=== PATIENT | female | born 1970 | race American Indian/Alaskan Native ===

== ENCOUNTER 2016-06-11 23:08 | Emergency (ER) | payer MEDICAID, OTHER ==
[2016-06-11 23:16] VITALS: BP 111/77
[2016-06-11] MEDS ORDERED: Albuterol/Ipratropium 3.0-0.5 MG/3 ML Neb Soln NEB ONE (23:52)
--- NOTE | 2016-06-11 23:59 | EDM.PDOC ---
ED HISTORY OF PRESENT ILLNESS - General Chief Complaint: Headache Stated Complaint: TROUBLE BREATHING Time Seen by Provider: 06/11/16 23:45 Source of Information: Reports: Patient History Limitations: Reports: No limitations - History of Present Illness INITIAL COMMENTS - FREE TEXT/NARRATIVE: This 45 yo female patient reports to the ED with increased shortness of breath, coughing and head congestion for the past month. The patient reports she was seen at the [facility] last week, started on Azithromycin, given an inhaler and a nebulizer. The patient reports she took all of the Azithromycin, has been using the inhaler and used the nebulizer 2 times since she was seen in the clinic. The patient reports her shortness of breath got much worse today which prompted her to come into the ED. Timing/Duration: Reports: Week(s):, Constant, Getting worse Severity: moderate Location, General: Reports: head, chest Quality: Reports: Ache, Dull Improves with: Reports: None Worsens with: Reports: Breathing Associated Symptoms (General): Reports: cough, headaches, shortness of breath Treatments PULP DRIER: Reports: Breathing treatments, Other medication(s) - Related Data Allergies/ADRs: Allergies Allergy/AdvReac Type Severity Reaction Status Date / Time No Known Allergies Allergy Verified 06/11/16 23:17 Home Meds: Home Meds Ibuprofen [Motrin] 1,200 mg PO Q6HR PRN 01/29/14 [History] Acetaminophen [Q-Pap] 650 mg PO 06/11/16 [History] Albuterol [Proventil HFA] 6.7 gm INH BID 06/11/16 [History] Cyclobenzaprine [Flexeril] 10 mg PO BEDTIME 06/11/16 [History] Past Medical History HEENT 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: Sinusitis Gastrointestinal 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: Other (see below) Other Gastrointestinal History: ulcer - Past Surgical History Female Surgical 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: section, Tubal ligation Other Musculoskeletal Surgeries/Procedures:: ankle Social & Family History - Family History Family Medical History: Noncontributory Cardiac: Reports: Hypertension Oncologic: Reports: Uterine - Tobacco Use Smoking Status *Q: Former Smoker Years of Tobacco use: 13 Packs/Tins Daily: 0.5 Used Tobacco, but Quit: Yes Month Tobacco Last Used: january; 2 years ago Second Hand Smoke Exposure: No - Caffeine Use Caffeine Use: Reports: Coffee - Alcohol Use Days Per Week of Alcohol Use: 0 - Recreational Drug Use Recreational Drug Use: No - Living Situation & Occupation Living situation: Reports: , with family ED ROS GENERAL - Review of Systems Review Of Systems: ROS reveals no pertinent complaints other than HPI. ED EXAM, GENERAL - Physical Exam Exam: See Below Exam Limited By: No limitations General Appearance: alert, WD/WN, moderate distress Eye Exam: bilateral eye: EOMI, normal inspection, PERRL Ears: normal external exam, normal canal, hearing grossly normal, normal TMs Nose: normal inspection, normal mucosa, no blood Throat/Mouth: Normal inspection, Normal lips, Normal teeth, Normal gums, Normal oropharynx, Normal voice, No airway compromise Head: atraumatic, normocephalic Neck: normal inspection, supple, non-tender, full range of motion Respiratory/Chest: no respiratory distress, chest non-tender, rhonchi (faint ) Cardiovascular: normal peripheral pulses, regular rate, rhythm, no edema, no gallop, no JVD, no murmur, no rub GI/Abdominal: normal bowel sounds, soft, non tender, no organomegaly, no distention, no abnormal bruit, no mass (Female) Exam: Deferred Rectal (Female) Exam: Deferred Back Exam: normal inspection, full range of motion, NT Extremities: normal inspection, normal range of motion, non-tender, normal capillary refill, no pedal edema Neurological: alert, oriented, CN II-XII intact, normal cognition, normal gait, normal reflexes, no motor/sensory deficits Psychiatric: normal affect, normal mood Skin Exam: Warm, Dry, Intact, Normal color, No rash Lymphatic: no adenopathy Course - Vital Signs Last Recorded V/S: Last Vital Signs Temp 36.8 C 06/11/16 23:12 Pulse 56 L 06/12/16 00:06 Resp 18 06/11/16 23:12 BP 111/77 06/11/16 23:12 Pulse Ox 100 06/11/16 23:12 - Orders/Labs/Meds Orders: Active Orders 24 hr Category Date Time Status RT Aerosol Therapy [RC] ASDIRECTED Care 06/11/16 23:52 Active COMPREHENSIVE METABOLIC PN,CMP [CHEM] Urgent Lab 06/11/16 00:05 Received Labs: Laboratory Tests 06/11/16 Range/Units 00:05 WBC 8.6 (5.0-10.0) 10^3/uL RBC 4.52 (4.2-5.4) 10^6/uL Hgb 13.2 (12.0-16.0) g/dL Hct 39.2 (37.0-47.0) % MCV 86.7 (80-100) fL MCH 29.2 (27.0-34.0) pg MCHC 33.7 (33.0-35.0) g/dL Plt Count 282 (150-450) 10^3/uL Neut % (Auto) 60.3 (42.2-75.2) % Lymph % (Auto) 28.5 (20.5-50.1) % [place] % (Auto) 9.5 H (2-8) % Eos % (Auto) 1.4 (1.0-3.0) % Baso % (Auto) 0.3 (0.0-1.0) % Meds: Medications Discontinued Medications Generic Name Dose Route Start Last Admin Trade Name Freq PRN Reason Stop Dose Admin Albuterol/Ipratropium 3 ml 06/11/16 23:52 06/12/16 00:05 Duoneb 3.0-0.5 Mg/3 Ml NEB 06/11/16 23:53 3 ml ONETIME ONE Administration Prednisone 20 mg 06/12/16 00:19 Prednisone PO 06/12/16 00:20 ONETIME ONE Departure - Departure Time of Disposition: 00:27 Disposition: Home, Self-Care 01 Condition: fair Clinical Impression: URI (upper respiratory infection) Qualifiers: URI type: unspecified URI Qualified Code(s): J06.9 - Acute upper respiratory infection, unspecified Instructions: Upper Respiratory Infection, Adult, [id number] Forms: ED Department Discharge Care Plan Goals: The patient was advised of the examination, lab and x-ray result during the visit. The patient was given an oral dose of Prednisone while in the ED. The patient was discharged with a script for a Medrol Dose Pack to take as directed. If the patient has any additional symptoms or concerns, the patient should follow-up with her primary care facility or return to the emergency department. - My Orders Last 24 Hours: My Active Orders 06/11/16 00:05 COMPREHENSIVE METABOLIC PN,CMP [CHEM] Urgent 06/11/16 23:52 RT Aerosol Therapy [RC] ASDIRECTED - Assessment/Plan Last 24 Hours: My Active Orders 06/11/16 00:05 COMPREHENSIVE METABOLIC PN,CMP [CHEM] Urgent 06/11/16 23:52 RT Aerosol Therapy [RC] ASDIRECTED
[2016-06-12] MEDS ORDERED: predniSONE 20 MG Tab PO ONE (00:19)
[2016-06-12 00:31] LABS: CHLORIDE,CL 105 mmol/L (101-111); SODIUM,NA 138 mmol/L (135-145)
== END 2016-06-12 00:35 | disposition home or self-care (01) ==
LOC: DL.ED 23:08
DX: J06.9 Acute upper respiratory infection, unspecified (principal); Z98.51 Tubal ligation status; Z79.899 Other long term (current) drug therapy; Z87.891 Personal history of nicotine dependence
CPT/HCPCS: 36415; 71020; 80053; 85025; 94640; 99284; A9270

== ENCOUNTER 2016-06-19 18:47 | Emergency (ER) | payer OTHER ==
[2016-06-19 19:51] LABS: CHLORIDE,CL 109 mmol/L (101-111); SODIUM,NA 138 mmol/L (135-145)
[2016-06-19 20:05] VITALS: BP 107/49
--- NOTE | 2016-06-19 20:09 | EDM.PDOC ---
ED HISTORY OF PRESENT ILLNESS - General Chief Complaint: Respiratory Problem Stated Complaint: HARD TIME BREATHING Time Seen by Provider: 06/19/16 19:00 Source of Information: Reports: Patient History Limitations: Reports: No limitations - History of Present Illness INITIAL COMMENTS - FREE TEXT/NARRATIVE: c/o chest feeling tight, Was seen approximately 2 weeks ago, was on antibiotic and prednisone, given inhaler for similar sx, Concerned if from mold in bathroom. No fevers, occasional dry cough. Timing/Duration: Reports: Day(s): Severity: moderate Location, General: Reports: chest Improves with: Reports: Other (when absent from house) Worsens with: Reports: Rest Context, General: Reports: Activity Associated Symptoms (General): Reports: cough, other (chest tight burning) - Related Data Allergies/ADRs: Allergies Allergy/AdvReac Type Severity Reaction Status Date / Time No Known Allergies Allergy Verified 06/19/16 18:55 Home Meds: Home Meds Ibuprofen [Motrin] 1,200 mg PO Q6HR PRN 01/29/14 [History] Acetaminophen [Q-Pap] 650 mg PO 06/11/16 [History] Albuterol [Proventil HFA] 6.7 gm INH BID 06/11/16 [History] Cyclobenzaprine [Flexeril] 10 mg PO BEDTIME 06/11/16 [History] Past Medical History HEENT 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: Sinusitis Gastrointestinal 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: Other (see below) Other Gastrointestinal History: ulcer - Infectious Disease History Infectious Disease 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: None - Past Surgical History Female Surgical 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: section, Tubal ligation Other Musculoskeletal Surgeries/Procedures:: ankle Social & Family History - Family History Family Medical History: Noncontributory Cardiac: Reports: Hypertension Oncologic: Reports: Uterine - Tobacco Use Smoking Status *Q: Former Smoker Years of Tobacco use: 13 Packs/Tins Daily: 0.5 Used Tobacco, but Quit: Yes Month Tobacco Last Used: january; 2 years ago Second Hand Smoke Exposure: No - Caffeine Use Caffeine Use: Reports: Coffee - Alcohol Use Days Per Week of Alcohol Use: 0 - Recreational Drug Use Recreational Drug Use: No - Living Situation & Occupation Living situation: Reports: , with family ED ROS GENERAL - Review of Systems Review Of Systems: See Below Constitutional: Reports: no symptoms HEENT: Reports: Throat pain Respiratory: Reports: Shortness of Breath, Cough Cardiovascular: Reports: Chest pain Endocrine: Reports: no symptoms GI/Abdominal: Reports: No symptoms Musculoskeletal: Reports: no symptoms Skin: Reports: no symptoms Neurological: Reports: No Symptoms ED EXAM, GENERAL - Physical Exam Exam: See Below Exam Limited By: No limitations General Appearance: alert, anxious, mild distress Eye Exam: bilateral eye: EOMI, PERRL Ears: normal external exam Nose: normal inspection Throat/Mouth: Normal inspection, Normal oropharynx, Normal voice Head: atraumatic, normocephalic Neck: normal inspection, full range of motion Respiratory/Chest: no respiratory distress, lungs clear, normal breath sounds. No: respiratory distress, rales, rhonchi, wheezing Cardiovascular: normal peripheral pulses, regular rate, rhythm GI/Abdominal: normal bowel sounds Back Exam: normal inspection Extremities: normal inspection Neurological: alert, oriented, normal cognition Psychiatric: anxious Skin Exam: Warm, Dry, Intact, Normal color Course - Vital Signs Last Recorded V/S: Last Vital Signs Temp 98.4 F 06/19/16 18:50 Pulse 56 L 06/19/16 18:50 Resp 20 06/19/16 18:50 BP 107/49 L 06/19/16 18:50 Pulse Ox 100 06/19/16 18:50 - Orders/Labs/Meds Orders: Active Orders 24 hr Category Date Time Status EKG 12 Lead [EKG Documentation Completion] [RC] URGENT Care 06/19/16 19:20 Active RT Aerosol Therapy [RC] ASDIRECTED Care 06/19/16 20:19 Active CULTURE STREP A CONFIRMATION [] Stat Lab 06/19/16 19:05 Results STREP SCRN A RAPID W CULT CONF [] Stat Lab 06/19/16 19:05 Results Labs: Laboratory Tests 06/19/16 06/19/16 06/19/16 Range/Units 19:17 19:17 19:17 WBC 10.3 H (5.0-10.0) 10^3/uL RBC 4.60 (4.2-5.4) 10^6/uL Hgb 13.4 (12.0-16.0) g/dL Hct 39.6 (37.0-47.0) % MCV 86.1 (80-100) fL MCH 29.1 (27.0-34.0) pg MCHC 33.8 (33.0-35.0) g/dL Plt Count 322 (150-450) 10^3/uL Neut % (Auto) 61.6 (42.2-75.2) % Lymph % (Auto) 28.4 (20.5-50.1) % [place] % (Auto) 8.8 H (2-8) % Eos % (Auto) 1.1 (1.0-3.0) % Baso % (Auto) 0.1 (0.0-1.0) % D-Dimer, Quantitative < 100 (0-400) ng/mL Sodium 138 (135-145) mmol/L Potassium 3.6 (3.6-5.0) mmol/L Chloride 109 (101-111) mmol/L Carbon Dioxide 21.0 (21.0-31.0) mmol/L Anion Gap 11.6 BUN 10 (7-18) mg/dL Creatinine 0.7 (0.6-1.3) mg/dL Est Cr Clr Drug Dosing TNP Estimated GFR (MDRD) > 60 BUN/Creatinine Ratio 14.28 Glucose 91 (74-105) mg/dL Calcium 8.5 (8.4-10.2) mg/dl Total Bilirubin 0.4 (0.2-1.0) mg/dL AST 34 (10-42) IU/L ALT 36 (10-60) IU/L Alkaline Phosphatase 53 (42-121) IU/L Troponin I (0.00-0.02) ng/ml Total Protein 6.8 (6.7-8.2) g/dl Albumin 4.0 (3.2-5.5) g/dl Globulin 2.8 Albumin/Globulin Ratio 1.43 Amylase 31 (28-100) U/L Lipase 34 (22-51) U/L Urine Color (YELLOW) Urine Appearance (CLEAR) Urine pH (5.0-9.0) Ur Specific [place] (1.005-1.030) Urine Protein (NEGATIVE) Urine Glucose (UA) (NEGATIVE) Urine Ketones (NEGATIVE) Urine Occult Blood (NEGATIVE) Urine Nitrite (NEGATIVE) Urine Bilirubin (NEGATIVE) Urine Urobilinogen (0.2-1.0) mg/dL Ur Leukocyte Esterase (NEGATIVE) Urine RBC /HPF Urine WBC (0-5/HPF) /HPF Ur Epithelial Cells /HPF Urine Bacteria (0-FEW/HPF) /HPF Urine HCG, Qual 06/19/16 06/19/16 06/19/16 Range/Units 19:17 19:35 19:35 WBC (5.0-10.0) 10^3/uL RBC (4.2-5.4) 10^6/uL Hgb (12.0-16.0) g/dL Hct (37.0-47.0) % MCV (80-100) fL MCH (27.0-34.0) pg MCHC (33.0-35.0) g/dL Plt Count (150-450) 10^3/uL Neut % (Auto) (42.2-75.2) % Lymph % (Auto) (20.5-50.1) % [place] % (Auto) (2-8) % Eos % (Auto) (1.0-3.0) % Baso % (Auto) (0.0-1.0) % D-Dimer, Quantitative (0-400) ng/mL Sodium (135-145) mmol/L Potassium (3.6-5.0) mmol/L Chloride (101-111) mmol/L Carbon Dioxide (21.0-31.0) mmol/L Anion Gap BUN (7-18) mg/dL Creatinine (0.6-1.3) mg/dL Est Cr Clr Drug Dosing Estimated GFR (MDRD) BUN/Creatinine Ratio Glucose (74-105) mg/dL Calcium (8.4-10.2) mg/dl Total Bilirubin (0.2-1.0) mg/dL AST (10-42) IU/L ALT (10-60) IU/L Alkaline Phosphatase (42-121) IU/L Troponin I < 0.02 (0.00-0.02) ng/ml Total Protein (6.7-8.2) g/dl Albumin (3.2-5.5) g/dl Globulin Albumin/Globulin Ratio Amylase (28-100) U/L Lipase (22-51) U/L Urine Color Yellow (YELLOW) Urine Appearance Clear (CLEAR) Urine pH 7.0 (5.0-9.0) Ur Specific [place] 1.010 (1.005-1.030) Urine Protein Negative (NEGATIVE) Urine Glucose (UA) Negative (NEGATIVE) Urine Ketones Negative (NEGATIVE) Urine Occult Blood Negative (NEGATIVE) Urine Nitrite Negative (NEGATIVE) Urine Bilirubin Negative (NEGATIVE) Urine Urobilinogen 0.2 (0.2-1.0) mg/dL Ur Leukocyte Esterase Negative (NEGATIVE) Urine RBC 0-5 /HPF Urine WBC Not seen (0-5/HPF) /HPF Ur Epithelial Cells Few /HPF Urine Bacteria Rare (0-FEW/HPF) /HPF Urine HCG, Qual Negative Meds: Medications Discontinued Medications Generic Name Dose Route Start Last Admin Trade Name Freq PRN Reason Stop Dose Admin Albuterol 2.5 mg 06/19/16 20:18 06/19/16 20:23 Proventil Neb Soln NEB 06/19/16 20:19 2.5 mg ONETIME ONE Administration Prednisone 20 mg 06/19/16 20:44 06/19/16 20:48 Prednisone PO 06/19/16 20:45 20 mg ONETIME ONE Administration - Radiology Interpretation Free Text/Narrative:: CXR negative Departure - Departure Time of Disposition: 20:45 Disposition: Home, Self-Care 01 Condition: good Clinical Impression: Reactive airway disease Qualifiers: Asthma severity: mild persistent Asthma complication type: uncomplicated Qualified Code(s): J45.30 - Mild persistent asthma, uncomplicated Instructions: Asthma, Adult Referrals: PCP,None [Primary Care Provider] - Forms: ED Department Discharge Additional Instructions: medrol dose pack per package instructions albuterol inhaler 2 puffs every 4 hours as needed clinic follow up as needed if symptoms not improving - My Orders Last 24 Hours: My Active Orders 06/19/16 19:05 CULTURE STREP A CONFIRMATION [RM] Stat STREP SCRN A RAPID W CULT CONF [RM] Stat 06/19/16 19:20 EKG 12 Lead [EKG Documentation Completion] [RC] URGENT 06/19/16 20:19 RT Aerosol Therapy [RC] ASDIRECTED - Assessment/Plan Last 24 Hours: My Active Orders 06/19/16 19:05 CULTURE STREP A CONFIRMATION [RM] Stat STREP SCRN A RAPID W CULT CONF [RM] Stat 06/19/16 19:20 EKG 12 Lead [EKG Documentation Completion] [RC] URGENT 06/19/16 20:19 RT Aerosol Therapy [RC] ASDIRECTED
[2016-06-19] MEDS ORDERED: Albuterol 0.083% 2.5 MG/3 ML Neb Soln NEB ONE (20:18)
[2016-06-19] MEDS ORDERED: predniSONE 20 MG Tab PO ONE (20:44)
--- NOTE | 2016-06-20 13:23 | EKG ---
06/19/2016- CHARLES LEBLANC - EKG done on a 45-year-old female showing sinus rhythm with heart rate of 56 beats per minute, normal axis, normal intervals, no acute ST-T wave changes. [facility] /[id number]
== END 2016-06-19 20:50 | disposition home or self-care (01) ==
LOC: DL.ED 18:47
DX: J45.30 Mild persistent asthma, uncomplicated (principal); Z98.51 Tubal ligation status; Z87.891 Personal history of nicotine dependence; Z79.899 Other long term (current) drug therapy
CPT/HCPCS: 36415; 71020; 80053; 81001; 81025; 82150; 83690; 84484; 85025; 85379; 87081; 87430; 87804; 93005; 94640; 99285; A9270; J7620

== ENCOUNTER 2017-05-27 16:47 | Emergency (ER) | payer OTHER ==
[2017-05-27 17:00] VITALS: BP 112/68
--- NOTE | 2017-05-27 17:33 | CR ---
Clinical history: 46-year-old female pain left wrist starting 2 days ago. No known trauma. Interpretation: Homogeneous normal age appropriate bone density. Isolated tiny cyst distal end of the carpal scaphoid bone. Subtle reactive sclerosis radiocarpal and carpal metacarpal joints radial aspect of the wrist suggest s early arthritis. No sign of left wrist fracture or dislocation. (Tendinous injury?) Normal metacarpals. No foreign bodies.
--- NOTE | 2017-05-27 18:08 | EDM.PDOC ---
ED HPI GENERAL MEDICAL PROBLEM - General Chief Complaint: Upper Extremity Injury/Pain Stated Complaint: [id number] HURT WRIST-ADVISED TO HAVE XRAYED Time Seen by Provider: 05/27/17 17:55 Source of Information: Reports: Patient History Limitations: Reports: No Limitations - History of Present Illness INITIAL COMMENTS - FREE TEXT/NARRATIVE: This 46 yo female patient reports to the ED with a 3 day history of pain in her left wrist. The patient reports she woke up on Saturday morning with pain in her wrist. The patient does not recall any specific injury or trauma to the area. The patient has been applying ice which has reduced the pain. The patient attempted to get an appointment in the clinic, but there were no openings. Onset Date: 05/25/17 Duration: Constant Location: Reports: Upper Extremity, Left Quality: Reports: Ache, Dull Severity: Moderate Improves with: Reports: Rest, Other (ice) Worsens with: Reports: Movement Associated Symptoms: Reports: No Other Symptoms Left Arm Pain Score (Numeric/FACES): 7 - Related Data Allergies Allergy/AdvReac Type Severity Reaction Status Date / Time No Known Allergies Allergy Verified 06/19/16 18:55 Home Meds: Home Meds Ibuprofen [Motrin] 1,200 mg PO Q6HR PRN 01/29/14 [History] Acetaminophen [Q-Pap] 650 mg PO 06/11/16 [History] Albuterol [Proventil HFA] 6.7 gm INH BID 06/11/16 [History] Cyclobenzaprine [Flexeril] 10 mg PO BEDTIME 06/11/16 [History] Past Medical History HEENT 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: Sinusitis Gastrointestinal 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: Other (See Below) Other Gastrointestinal History: ulcer - Infectious Disease History Infectious Disease 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: None - Past Surgical History Female Surgical 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: Section, Tubal Ligation Musculoskeletal Surgical 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: Other (See Below) Other Musculoskeletal Surgeries/Procedures:: ankle Social & Family History - Family History Family Medical History: Noncontributory Cardiac: Reports: Hypertension Oncologic: Reports: Uterine - Tobacco Use Smoking Status *Q: Never Smoker Years of Tobacco use: 13 Packs/Tins Daily: 0.5 Used Tobacco, but Quit: Yes Month/Year Tobacco Last Used: january; 2 years ago Second Hand Smoke Exposure: No - Caffeine Use Caffeine Use: Reports: Coffee, Soda, Tea - Alcohol Use Days Per Week of Alcohol Use: 0 - Recreational Drug Use Recreational Drug Use: No - Living Situation & Occupation Living situation: Reports: , with Family Review of Systems - Review of Systems Review Of Systems: ROS reveals no pertinent complaints other than HPI. ED EXAM, GENERAL - Physical Exam Exam: See Below Exam Limited By: No Limitations General Appearance: Alert, WD/WN, Mild Distress Eye Exam: Bilateral Eye: EOMI, Normal Inspection, PERRL Ears: Normal External Exam, Normal Canal, Hearing Grossly Normal, Normal TMs Nose: Normal Inspection, Normal Mucosa, No Blood Throat/Mouth: Normal Inspection, Normal Lips, Normal Teeth, Normal Gums, Normal Oropharynx, Normal Voice, No Airway Compromise Head: Atraumatic, Normocephalic Neck: Normal Inspection, Full Range of Motion Respiratory/Chest: No Respiratory Distress, Lungs Clear, Normal Breath Sounds, No Accessory Muscle Use, Chest Non-Tender Cardiovascular: Normal Peripheral Pulses, Regular Rate, Rhythm (Female) Exam: Deferred Rectal (Female) Exam: Deferred Extremities: Arm Pain (left wrist pain) Neurological: Alert, Oriented, CN II-XII Intact, Normal Cognition, Normal Gait, Normal Reflexes, No Motor/Sensory Deficits Psychiatric: Normal Affect, Normal Mood Skin Exam: Warm, Dry, Intact, Normal Color, No Rash Lymphatic: No Adenopathy Course - Vital Signs Last Recorded V/S: Last Vital Signs Temp 37.0 C 05/27/17 16:59 Pulse 55 L 05/27/17 16:59 Resp 16 05/27/17 16:59 BP 112/68 05/27/17 16:59 Pulse Ox 99 05/27/17 16:59 Departure - Departure Time of Disposition: 18:07 Disposition: Home, Self-Care 01 Condition: Fair Clinical Impression: Left wrist sprain Qualifiers: Encounter type: initial encounter Qualified Code(s): S63.502A - Unspecified sprain of left wrist, initial encounter - Discharge Information Instructions: Wrist Sprain, Adult Care Plan Goals: The patient was advised of the examination and lab results during the visit. The patient was placed in a left wrist splint and advised to rest, ice and elevate the extremity over the next 2-3 days. If the patient continues to have pain, the patient should follow-up with her primary care facility for continued evaluation and management.
== END 2017-05-27 18:22 | disposition home or self-care (01) ==
LOC: DL.ED 16:47
DX: S63.502A Unspecified sprain of left wrist, initial encounter (principal); Z87.891 Personal history of nicotine dependence; X58.XXXA Exposure to other specified factors, initial encounter
CPT/HCPCS: 73110-LT; 99283

== ENCOUNTER 2018-04-16 03:21 | Emergency (ER) | payer OTHER ==
[2018-04-16 03:30] VITALS: BP 135/77
[2018-04-16] MEDS ORDERED: Sodium Chloride 0.9% 10 ML Syringe FLUSH PRN (03:36)
[2018-04-16 04:03] LABS: ANION GAP 11.6; CHLORIDE,CL 108 mmol/L (101-111); SODIUM,NA 137 mmol/L (135-145)
--- NOTE | 2018-04-16 04:19 | EDM.PDOC ---
ED HPI GENERAL MEDICAL PROBLEM - General Chief Complaint: Chest Pain Stated Complaint: CHEST PAIN [id number] Time Seen by Provider: 04/16/18 03:25 Source of Information: Reports: Patient History Limitations: Reports: No Limitations - History of Present Illness INITIAL COMMENTS - FREE TEXT/NARRATIVE: Pt to ER with c/o left sided chest pain. She states the pain began last night and woke her up. She states she is not having any pain at this time. She states she had the same pain the night before last. Pt states she took 2 aspirin. She states she wears a Fitbit and her heart rate had been in the 60's, which is high for her as her HR is normally only in the 40's to 50's. Patient denies any recent illness. No accompanying nausea, vomiting, diaphoresis, SOB. Patient did admit that the pain radiated to the left arm at times. Patient admits to some anxiety at times. Onset: Today Duration: Intermittent Location: Reports: Chest Quality: Reports: Stabbing Severity: Moderate Improves with: Reports: None Worsens with: Reports: None Associated Symptoms: Reports: Chest Pain Left Chest Pain Score (Numeric/FACES): 7 - Related Data Allergies Allergy/AdvReac Type Severity Reaction Status Date / Time No Known Allergies Allergy Verified 04/16/18 03:26 Home Meds: Home Meds Ibuprofen [Motrin] 1,200 mg PO Q6HR PRN 01/29/14 [History] Acetaminophen [Q-Pap] 650 mg PO 06/11/16 [History] Albuterol [Proventil HFA] 6.7 gm INH BID 06/11/16 [History] Cyclobenzaprine [Flexeril] 10 mg PO BEDTIME 06/11/16 [History] Past Medical History HEENT 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: Impaired Vision, Sinusitis Other HEENT History: wears glasses Cardiovascular 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: None Respiratory 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: None Gastrointestinal 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: Other (See Below) Other Gastrointestinal History: ulcer Genitourinary 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: None 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: None Musculoskeletal 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: None Neurological 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: None Psychiatric 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: None Endocrine/Metabolic 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: None Hematologic 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: None Immunologic 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: None Oncologic (Cancer) 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: None Dermatologic 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: None - Infectious Disease History Infectious Disease 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: None - Past Surgical History Female Surgical 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: Section, Tubal Ligation Musculoskeletal Surgical 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: Other (See Below) Other Musculoskeletal Surgeries/Procedures:: ankle Social & Family History - Family History Family Medical History: Noncontributory Cardiac: Reports: Hypertension Oncologic: Reports: Uterine - Tobacco Use Smoking Status *Q: Never Smoker - Caffeine Use Caffeine Use: Reports: Coffee, Soda, Tea - Recreational Drug Use Recreational Drug Use: No - Living Situation & Occupation Living situation: Reports: , with Family ED ROS GENERAL - Review of Systems Review Of Systems: ROS reveals no pertinent complaints other than HPI. ED EXAM, GENERAL - Physical Exam Exam: See Below Exam Limited By: No Limitations General Appearance: Alert, WD/WN, No Apparent Distress Eye Exam: Bilateral Eye: EOMI, Normal Inspection Ears: Normal External Exam, Hearing Grossly Normal Nose: Normal Inspection Throat/Mouth: Normal Inspection, Normal Voice, No Airway Compromise Head: Atraumatic, Normocephalic Neck: Normal Inspection, Supple, Non-Tender, Full Range of Motion Respiratory/Chest: No Respiratory Distress, Lungs Clear, Normal Breath Sounds, No Accessory Muscle Use, Chest Non-Tender Cardiovascular: Normal Peripheral Pulses, No Edema, No Gallop, No JVD, No Murmur , No Rub, Bradycardia Peripheral Pulses: 2+: Radial (L), Radial (R) GI/Abdominal: Normal Bowel Sounds, Soft, Non-Tender (Female) Exam: Deferred Rectal (Female) Exam: Deferred Back Exam: Normal Inspection, Full Range of Motion, NT Extremities: Normal Inspection, Normal Range of Motion, Non-Tender, Normal Capillary Refill, No Pedal Edema Neurological: Alert, Oriented, CN II-XII Intact, Normal Cognition, Normal Gait, Normal Reflexes, No Motor/Sensory Deficits Psychiatric: Anxious Skin Exam: Warm, Dry, Intact, Normal Color, No Rash Lymphatic: No Adenopathy EKG INTERPRETATION EKG Date: 04/16/18 Time: 03:24 Rhythm: Other (sinus bradycardia) Rate (Beats/Min): 49 Ranger: Normal P-Wave: Present QRS: Normal ST-T: Normal QT: Normal Comparison: No Change Course - Vital Signs Last Recorded V/S: Last Vital Signs Temp 97.4 F 04/16/18 03:26 Pulse 48 L 04/16/18 03:26 Resp 16 04/16/18 03:26 BP 135/77 04/16/18 03:26 Pulse Ox 100 04/16/18 03:26 - Orders/Labs/Meds Orders: Active Orders 24 hr Category Date Time Status EKG Documentation Completion [RC] STAT Care 04/16/18 03:41 Active EKG Documentation Completion [RC] URGENT Care 04/16/18 03:25 Active Peripheral IV Care [RC] . DIRECTED Care 04/16/18 03:43 Active Chest 1V Frontal [CR] Stat Exams 04/16/18 03:41 Taken Peripheral IV Insertion Adult [OM.PC] Stat Oth 04/16/18 03:36 Ordered Labs: Laboratory Tests 04/16/18 04/16/18 04/16/18 Range/Units 03:35 03:35 03:35 WBC 9.3 (5.0-10.0) 10^3/uL RBC 4.76 (4.2-5.4) 10^6/uL Hgb 13.4 (12.0-16.0) g/dL Hct 40.0 (37.0-47.0) % MCV 84.0 (80-100) fL MCH 28.2 (27.0-34.0) pg MCHC 33.5 (33.0-35.0) g/dL Plt Count 259 (150-450) 10^3/uL Neut % (Auto) 55.4 (42.2-75.2) % Lymph % (Auto) 33.5 (20.5-50.1) % [place] % (Auto) 9.0 H (2-8) % Eos % (Auto) 1.8 (1.0-3.0) % Baso % (Auto) 0.3 (0.0-1.0) % PT 9.6 (9.0-12.0) SEC INR 1.0 (0.9-1.2) Sodium 137 (135-145) mmol/L Potassium 3.6 (3.6-5.0) mmol/L Chloride 108 (101-111) mmol/L Carbon Dioxide 21.0 (21.0-31.0) mmol/L Anion Gap 11.6 BUN 13 (7-18) mg/dL Creatinine 0.6 (0.6-1.3) mg/dL Est Cr Clr Drug Dosing 101.17 mL/min Estimated GFR (MDRD) > 60 BUN/Creatinine Ratio 21.66 Glucose 85 (74-105) mg/dL Calcium 8.7 (8.4-10.2) mg/dl Total Bilirubin 0.7 (0.2-1.0) mg/dL AST 27 (10-42) IU/L ALT 19 (10-60) IU/L Alkaline Phosphatase 61 (42-121) IU/L Troponin I < 0.02 (0.00-0.02) ng/ml Total Protein 6.9 (6.7-8.2) g/dl Albumin 3.9 (3.2-5.5) g/dl Globulin 3.0 Albumin/Globulin Ratio 1.30 Urine Color (YELLOW) Urine Appearance (CLEAR) Urine pH (5.0-9.0) Ur Specific [place] (1.005-1.030) Urine Protein (NEGATIVE) Urine Glucose (UA) (NEGATIVE) Urine Ketones (NEGATIVE) Urine Occult Blood (NEGATIVE) Urine Nitrite (NEGATIVE) Urine Bilirubin (NEGATIVE) Urine Urobilinogen (0.2-1.0) mg/dL Ur Leukocyte Esterase (NEGATIVE) Urine Opiates Screen (NEGATIVE) Ur Oxycodone Screen (NEGATIVE) Urine Methadone Screen (NEGATIVE) Ur Barbiturates Screen (NEGATIVE) U Tricyclic Antidepress (NEGATIVE) Ur Phencyclidine Scrn (NEGATIVE) Ur Amphetamine Screen (NEGATIVE) U Methamphetamines Scrn (NEGATIVE) Urine MDMA Screen (NEGATIVE) U Benzodiazepines Scrn (NEGATIVE) Urine Cocaine Screen (NEGATIVE) U Marijuana (THC) Screen (NEGATIVE) Ethyl Alcohol 5 mg/dL 04/16/18 04/16/18 Range/Units 04:11 04:11 WBC (5.0-10.0) 10^3/uL RBC (4.2-5.4) 10^6/uL Hgb (12.0-16.0) g/dL Hct (37.0-47.0) % MCV (80-100) fL MCH (27.0-34.0) pg MCHC (33.0-35.0) g/dL Plt Count (150-450) 10^3/uL Neut % (Auto) (42.2-75.2) % Lymph % (Auto) (20.5-50.1) % [place] % (Auto) (2-8) % Eos % (Auto) (1.0-3.0) % Baso % (Auto) (0.0-1.0) % PT (9.0-12.0) SEC INR (0.9-1.2) Sodium (135-145) mmol/L Potassium (3.6-5.0) mmol/L Chloride (101-111) mmol/L Carbon Dioxide (21.0-31.0) mmol/L Anion Gap BUN (7-18) mg/dL Creatinine (0.6-1.3) mg/dL Est Cr Clr Drug Dosing mL/min Estimated GFR (MDRD) BUN/Creatinine Ratio Glucose (74-105) mg/dL Calcium (8.4-10.2) mg/dl Total Bilirubin (0.2-1.0) mg/dL AST (10-42) IU/L ALT (10-60) IU/L Alkaline Phosphatase (42-121) IU/L Troponin I (0.00-0.02) ng/ml Total Protein (6.7-8.2) g/dl Albumin (3.2-5.5) g/dl Globulin Albumin/Globulin Ratio Urine Color Yellow (YELLOW) Urine Appearance Clear (CLEAR) Urine pH 6.5 (5.0-9.0) Ur Specific [place] 1.020 (1.005-1.030) Urine Protein Negative (NEGATIVE) Urine Glucose (UA) Negative (NEGATIVE) Urine Ketones Negative (NEGATIVE) Urine Occult Blood Negative (NEGATIVE) Urine Nitrite Negative (NEGATIVE) Urine Bilirubin Negative (NEGATIVE) Urine Urobilinogen 0.2 (0.2-1.0) mg/dL Ur Leukocyte Esterase Negative (NEGATIVE) Urine Opiates Screen Negative (NEGATIVE) Ur Oxycodone Screen Negative (NEGATIVE) Urine Methadone Screen Negative (NEGATIVE) Ur Barbiturates Screen Negative (NEGATIVE) U Tricyclic Antidepress Negative (NEGATIVE) Ur Phencyclidine Scrn Negative (NEGATIVE) Ur Amphetamine Screen Negative (NEGATIVE) U Methamphetamines Scrn Negative (NEGATIVE) Urine MDMA Screen Negative (NEGATIVE) U Benzodiazepines Scrn Negative (NEGATIVE) Urine Cocaine Screen Negative (NEGATIVE) U Marijuana (THC) Screen Negative (NEGATIVE) Ethyl Alcohol mg/dL Meds: Medications Discontinued Medications Generic Name Dose Route Start Last Admin Trade Name Freq PRN Reason Stop Dose Admin Sodium Chloride 10 ml 04/16/18 03:36 04/16/18 03:56 Saline Flush FLUSH 10 ml ASDIRECTED PRN Administration Keep Vein Open - Radiology Interpretation Free Text/Narrative:: Chest xray: FINDINGS: Lungs: Unremarkable. No consolidation. Pleural space: Unremarkable. No pleural effusion. No pneumothorax. Heart/Mediastinum: Unremarkable. No cardiomegaly. Bones/joints: Unremarkable. IMPRESSION: No acute findings. Thank you for allowing us to participate in the care of your patient. Dictated and Authenticated by: Chencho Nuñez MD 04/16/2018 5:49 AM Central Time ([place] & [place]) See rad report Departure - Departure Time of Disposition: 04:41 Disposition: Home, Self-Care 01 Condition: Fair Clinical Impression: Bradycardia, Nonspecific chest pain Instructions: Bradycardia, Adult, Nonspecific Chest Pain, [id number] Referrals: PCP,Unobtain [Ordering Only Provider] - Forms: ED Department Discharge Additional Instructions: Follow up with Dr. Vaughan in the clinic - My Orders Last 24 Hours: My Active Orders 04/16/18 03:25 EKG Documentation Completion [RC] URGENT 04/16/18 03:36 Peripheral IV Insertion Adult [OM.PC] Stat 04/16/18 03:41 EKG Documentation Completion [RC] STAT Chest 1V Frontal [CR] Stat 04/16/18 03:43 Peripheral IV Care [RC] . DIRECTED - Assessment/Plan Last 24 Hours: My Active Orders 04/16/18 03:25 EKG Documentation Completion [RC] URGENT 04/16/18 03:36 Peripheral IV Insertion Adult [OM.PC] Stat 04/16/18 03:41 EKG Documentation Completion [RC] STAT Chest 1V Frontal [CR] Stat 04/16/18 03:43 Peripheral IV Care [RC] . DIRECTED
== END 2018-04-16 05:10 | disposition home or self-care (01) ==
LOC: DL.ED 03:21
DX: R00.1 Bradycardia, unspecified (principal); R07.89 Other chest pain
CPT/HCPCS: 36415; 71045; 80053; 80305; 81003; 84484; 85025; 85610; 93005; 99285; G0480

== ENCOUNTER 2018-07-22 16:37 | Emergency (ER) | payer OTHER ==
--- NOTE | 2018-07-22 18:00 | CR ---
Clinical history: 47-year-old female clinical "shortness of breath". Interpretation: Upright PA/lateral chest films reveal down snaps, external electrotyper helper leads, and bilateral nipple rings as well as brassiere clips and necklace. Normal cardiac silhouette without cephalization of flow, alveolar edema or dependent effusion. No new lung mass, hilar lymphadenopathy or focal lobar pneumonia identified in the interval since 16 April 2018 exam. No atelectasis/collapse. No pneumothorax or free subdiaphragmatic air. CONCLUSION: No acute new cardiopulmonary abnormality.
[2018-07-22 18:28] VITALS: BP 118/72
[2018-07-22 18:38] LABS: ANION GAP 11.5; CHLORIDE,CL 108 mmol/L (101-111); SODIUM,NA 138 mmol/L (135-145)
--- NOTE | 2018-07-22 18:53 | EDM.PDOC ---
Scribed by Fela Merritt 07/22/18 1853 for Aleksandr Siddiqi PA ED HPI GENERAL MEDICAL PROBLEM - General Chief Complaint: Respiratory Problem Stated Complaint: RESPIRATORY PROBLEM [id number] Time Seen by Provider: 07/22/18 17:39 Source of Information: Reports: Patient, RN, RN Notes Reviewed History Limitations: Reports: No Limitations - History of Present Illness INITIAL COMMENTS - FREE TEXT/NARRATIVE: Patient is 47-year-old female with increased shortness of breath today. She has had a cold for 3 weeks. She has been taking Tylenol and Mucinex at home. Onset: Gradual Duration: Getting Worse Location: Reports: Chest Quality: Reports: Ache Severity: Moderate Improves with: Reports: None Worsens with: Reports: None Associated Symptoms: Reports: No Other Symptoms Chest Pain Score (Numeric/FACES): 5 - Related Data Allergies Allergy/AdvReac Type Severity Reaction Status Date / Time No Known Allergies Allergy Verified 07/22/18 17:19 Home Meds: Home Meds Albuterol [Proventil HFA] 6.7 gm INH BID 06/11/16 [History] Past Medical History HEENT 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: Impaired Vision, Sinusitis Other HEENT History: wears glasses Cardiovascular 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: None Respiratory 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: None Gastrointestinal 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: Other (See Below) Other Gastrointestinal History: ulcer Genitourinary 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: None 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 ENGINEER 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: 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 (See Below) 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 OFFICE ENGINEER 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: hx Musculoskeletal 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: Other (See Below) Other Musculoskeletal History: foot/ankle surgery Neurological 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: None Psychiatric 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: None Endocrine/Metabolic 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: None Hematologic 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: None Immunologic 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: None Oncologic (Cancer) 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: None Dermatologic 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: None - Infectious Disease History Infectious Disease 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: None - Past Surgical History Female Surgical 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: Section, Tubal Ligation Musculoskeletal Surgical 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: Other (See Below) Other Musculoskeletal Surgeries/Procedures:: ankle Social & Family History - Family History Family Medical History: Noncontributory Cardiac: Reports: Hypertension Oncologic: Reports: Uterine - Tobacco Use Smoking Status *Q: Never Smoker Second Hand Smoke Exposure: No - Caffeine Use Caffeine Use: Reports: Coffee - Recreational Drug Use Recreational Drug Use: No - Living Situation & Occupation Living situation: Reports: , with Family ED ROS GENERAL - Review of Systems Review Of Systems: ROS reveals no pertinent complaints other than HPI. ED EXAM, GENERAL - Physical Exam Exam: See Below Exam Limited By: No Limitations General Appearance: Alert, WD/WN, No Apparent Distress Eye Exam: Bilateral Eye: EOMI, Normal Inspection, PERRL Ears: Normal External Exam, Normal Canal, Hearing Grossly Normal, Normal TMs Nose: Normal Inspection, Normal Mucosa, No Blood Throat/Mouth: Normal Inspection, Normal Lips, Normal Teeth, Normal Gums, Normal Oropharynx, Normal Voice, No Airway Compromise Head: Atraumatic, Normocephalic Neck: Other (lymphadenopathy left cervical) Respiratory/Chest: Rhonchi (left lower lobe) Cardiovascular: Normal Peripheral Pulses, Regular Rate, Rhythm, No Edema, No Gallop, No JVD, No Murmur, No Rub GI/Abdominal: Normal Bowel Sounds, Soft, Non-Tender, No Organomegaly, No Distention, No Abnormal Bruit, No Mass (Female) Exam: Deferred Rectal (Female) Exam: Deferred Back Exam: Normal Inspection, Full Range of Motion, NT Extremities: Normal Inspection, Normal Range of Motion, Non-Tender, Normal Capillary Refill, No Pedal Edema Neurological: Alert, Oriented, CN II-XII Intact, Normal Cognition, Normal Gait, Normal Reflexes, No Motor/Sensory Deficits Skin Exam: Warm, Dry, Intact, Normal Color, No Rash Lymphatic: Other (left anterior cervical) Course - Vital Signs Last Recorded V/S: Last Vital Signs Temp 36.7 C 07/22/18 17:12 Pulse 66 07/22/18 18:27 Resp 16 07/22/18 18:27 BP 118/72 07/22/18 18:27 Pulse Ox 100 07/22/18 18:27 - Orders/Labs/Meds Labs: Laboratory Tests 07/22/18 07/22/18 Range/Units 17:57 17:57 WBC 9.8 (5.0-10.0) 10^3/uL RBC 4.98 (4.2-5.4) 10^6/uL Hgb 14.1 (12.0-16.0) g/dL Hct 42.1 (37.0-47.0) % MCV 84.5 (80-100) fL MCH 28.3 (27.0-34.0) pg MCHC 33.5 (33.0-35.0) g/dL Plt Count 279 (150-450) 10^3/uL Neut % (Auto) 66.0 (42.2-75.2) % Lymph % (Auto) 25.6 (20.5-50.1) % [place] % (Auto) 7.1 (2-8) % Eos % (Auto) 1.1 (1.0-3.0) % Baso % (Auto) 0.2 (0.0-1.0) % Sodium 138 (135-145) mmol/L Potassium 3.5 L (3.6-5.0) mmol/L Chloride 108 (101-111) mmol/L Carbon Dioxide 22.0 (21.0-31.0) mmol/L Anion Gap 11.5 BUN 9 (7-18) mg/dL Creatinine 0.7 (0.6-1.3) mg/dL Est Cr Clr Drug Dosing 86.72 mL/min Estimated GFR (MDRD) > 60 BUN/Creatinine Ratio 12.85 Glucose 83 (74-105) mg/dL Calcium 8.8 (8.4-10.2) mg/dl Total Bilirubin 0.9 (0.2-1.0) mg/dL AST 26 (10-42) IU/L ALT 25 (10-60) IU/L Alkaline Phosphatase 53 (42-121) IU/L Total Protein 7.1 (6.7-8.2) g/dl Albumin 4.2 (3.2-5.5) g/dl Globulin 2.9 Albumin/Globulin Ratio 1.45 Departure - Departure Time of Disposition: 18:49 Disposition: Home, Self-Care 01 Condition: Fair Clinical Impression: Bronchitis - Discharge Information *PRESCRIPTION DRUG MONITORING PROGRAM REVIEWED*: Not Applicable *COPY OF PRESCRIPTION DRUG MONITORING REPORT IN PATIENT LAURA: Not Applicable Instructions: Acute Bronchitis, Adult, [id number] Forms: ED Department Discharge Care Plan Goals: The patient was advised of the examination, lab and x-ray results during the visit. The patient was discharged with scripts for Levaquin (500 mg) to take 1 by mouth daily for 7 days and Prednisone (20 mg) #10 to take 2 by mouth daily for 5 days. If the patient has any additional symptoms or concerns, the patient should either visit her primary care facility or return to the emergency department. I have read and agree with the documentation that has been completed regarding this visit. By signing this record, I attest that the documentation was completed in my physical presence and is an accurate record of the encounter.
== END 2018-07-22 19:02 | disposition home or self-care (01) ==
LOC: DL.ED 16:37
DX: J40 Bronchitis, not specified as acute or chronic (principal)
CPT/HCPCS: 36415; 71046; 80053; 85025; 99283-25

== ENCOUNTER 2018-08-12 11:32 | Emergency (ER) | payer OTHER ==
[2018-08-12] MEDS ORDERED: Albuterol/Ipratropium 3.0-0.5 MG/3 ML Neb Soln NEB ONE (11:37)
--- NOTE | 2018-08-12 11:51 | EDM.PDOC ---
Addendum entered and electronically signed by Estela Da Silva 08/12/18 13:43: Chest XRAY results: Mild reactive airway disease. No focal infiltrates. Addendum entered and electronically signed by Estela Da Silva 08/12/18 13:40: Additional instruction provided: Follow up with primary care provider in approximately 1 week for potassium recheck. Original Note: <Estela Da Silva - Last Filed: 08/12/18 13:22> ED HPI GENERAL MEDICAL PROBLEM - General Chief Complaint: Respiratory Problem Stated Complaint: UNKNOWN Time Seen by Provider: 08/12/18 11:40 Source of Information: Reports: Patient, EMS History Limitations: Reports: No Limitations - History of Present Illness INITIAL COMMENTS - FREE TEXT/NARRATIVE: Patient presents to ER with CC of shortness of breath, coughing, chest pain that has been ongoing for over a week. patient states that a "couple weeks' ago she was started on PO prednisone for dx of bronchitis after returning from [place]. Patient states that she does not feel as though her coughing or shortness of breath as improved. Does admit to having thick, green sputum frequently while coughing. Pain in upper left chest does increase during coughing spells. Pain to this region is described as "heavy". Patient denies any nausea, vomiting, radiation of pain, fever or chills. Patient grandson recently diagnosed with pneumonia. Onset: Other ("couple weeks ago") Location: Reports: Chest Quality: Reports: Other (heavy) Severity: Moderate Improves with: Reports: None Worsens with: Reports: Other (coughing) Associated Symptoms: Reports: cough w sputum, Shortness of Breath Treatments ENVIRONMENTAL TEST TECHNICIAN: Reports: Acetaminophen (last taken 08/11/18) Chest Pain Score (Numeric/FACES): 5 - Related Data Allergies Allergy/AdvReac Type Severity Reaction Status Date / Time No Known Allergies Allergy Verified 08/12/18 11:45 Home Meds: Home Meds Albuterol [Proventil HFA] 6.7 gm INH BID 06/11/16 [History] predniSONE [Prednisone] 40 mg PO DAILY 08/12/18 [History] Past Medical History HEENT 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: Impaired Vision, Sinusitis Other HEENT History: wears glasses Cardiovascular 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: None Respiratory 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: None Gastrointestinal 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: Other (See Below) Other Gastrointestinal History: ulcer Genitourinary 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: None 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 (See Below) 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 Musculoskeletal 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: Other (See Below) Other Musculoskeletal History: foot/ankle surgery Neurological 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: None Psychiatric 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: None Endocrine/Metabolic 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: None Hematologic 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: None Immunologic 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: None Oncologic (Cancer) 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: None Dermatologic 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: None - Infectious Disease History Infectious Disease 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: None - Past Surgical History Female Surgical 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: Section, Tubal Ligation Musculoskeletal Surgical 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: Other (See Below) Other Musculoskeletal Surgeries/Procedures:: ankle Social & Family History - Family History Family Medical History: Noncontributory Cardiac: Reports: Hypertension Oncologic: Reports: Uterine - Caffeine Use Caffeine Use: Reports: Coffee - Living Situation & Occupation Living situation: Reports: , with Family ED ROS GENERAL - Review of Systems Review Of Systems: ROS reveals no pertinent complaints other than HPI. ED EXAM, GENERAL - Physical Exam Exam: See Below Exam Limited By: No Limitations General Appearance: Alert, WD/WN, No Apparent Distress Ears: Normal External Exam, Normal Canal, Hearing Grossly Normal, Normal TMs Nose: Normal Inspection, Normal Mucosa, No Blood Throat/Mouth: Normal Inspection, Normal Lips, Normal Teeth, Normal Gums, Normal Oropharynx, Normal Voice, No Airway Compromise Neck: Normal Inspection, Supple, Non-Tender, Full Range of Motion Respiratory/Chest: No Respiratory Distress, Normal Breath Sounds, No Accessory Muscle Use, Chest Non-Tender, Rhonchi (posterior left lower lobe) Cardiovascular: Normal Peripheral Pulses, Regular Rate, Rhythm, No Edema, No Gallop, No JVD, No Murmur, No Rub Peripheral Pulses: 3+: Radial (L), Radial (R), Posterior Tibial (L), Posterior Tibial (R), Dorsalis Pedis (L), Dorsalis Pedis (R) GI/Abdominal: Normal Bowel Sounds, Soft, Non-Tender, No Distention, No Abnormal Bruit Extremities: Normal Inspection, Normal Range of Motion, Non-Tender, Normal Capillary Refill, No Pedal Edema Neurological: Alert, Oriented, CN II-XII Intact, Normal Cognition, Normal Reflexes Course - Vital Signs Last Recorded V/S: Last Vital Signs Temp 98.2 F 08/12/18 11:41 Pulse 54 L 08/12/18 11:52 Resp 24 H 08/12/18 11:41 BP 120/63 08/12/18 11:41 Pulse Ox 100 08/12/18 11:41 - Orders/Labs/Meds Orders: Active Orders 24 hr Category Date Time Status RT Aerosol Therapy [RC] ASDIRECTED Care 08/12/18 11:37 Active RT Post Treatment Assessment [RC] Click to Edit Care 08/12/18 13:27 Active RT Pre-Treatment Assessment [RC] Click to Edit Care 08/12/18 13:27 Active Labs: Laboratory Tests 08/12/18 08/12/18 08/12/18 Range/Units 12:00 12:00 12:00 WBC 9.3 (5.0-10.0) 10^3/uL RBC 5.11 (4.2-5.4) 10^6/uL Hgb 14.5 (12.0-16.0) g/dL Hct 42.0 (37.0-47.0) % MCV 82.2 (80-100) fL MCH 28.4 (27.0-34.0) pg MCHC 34.5 (33.0-35.0) g/dL Plt Count 329 (150-450) 10^3/uL Neut % (Auto) 57.3 (42.2-75.2) % Lymph % (Auto) 36.0 (20.5-50.1) % [place] % (Auto) 6.5 (2-8) % Eos % (Auto) 0.1 L (1.0-3.0) % Baso % (Auto) 0.1 (0.0-1.0) % D-Dimer, Quantitative 284 (0-400) ng/mL Sodium 139 (135-145) mmol/L Potassium 2.8 L (3.6-5.0) mmol/L Chloride 109 (101-111) mmol/L Carbon Dioxide 17.0 L (21.0-31.0) mmol/L Anion Gap 15.8 BUN 12 (7-18) mg/dL Creatinine 0.8 (0.6-1.3) mg/dL Est Cr Clr Drug Dosing TNP Estimated GFR (MDRD) > 60 Glucose 88 (74-105) mg/dL Calcium 9.1 (8.4-10.2) mg/dl Troponin I < 0.02 (0.00-0.02) ng/ml Urine Color (YELLOW) Urine Appearance (CLEAR) Urine pH (5.0-9.0) Ur Specific [place] (1.005-1.030) Urine Protein (NEGATIVE) Urine Glucose (UA) (NEGATIVE) Urine Ketones (NEGATIVE) Urine Occult Blood (NEGATIVE) Urine Nitrite (NEGATIVE) Urine Bilirubin (NEGATIVE) Urine Urobilinogen (0.2-1.0) mg/dL Ur Leukocyte Esterase (NEGATIVE) Urine RBC /HPF Urine WBC (0-5/HPF) /HPF Ur Epithelial Cells (NOT SEEN) /HPF Urine Bacteria (0-FEW/HPF) /HPF 08/12/18 Range/Units 12:18 WBC (5.0-10.0) 10^3/uL RBC (4.2-5.4) 10^6/uL Hgb (12.0-16.0) g/dL Hct (37.0-47.0) % MCV (80-100) fL MCH (27.0-34.0) pg MCHC (33.0-35.0) g/dL Plt Count (150-450) 10^3/uL Neut % (Auto) (42.2-75.2) % Lymph % (Auto) (20.5-50.1) % [place] % (Auto) (2-8) % Eos % (Auto) (1.0-3.0) % Baso % (Auto) (0.0-1.0) % D-Dimer, Quantitative (0-400) ng/mL Sodium (135-145) mmol/L Potassium (3.6-5.0) mmol/L Chloride (101-111) mmol/L Carbon Dioxide (21.0-31.0) mmol/L Anion Gap BUN (7-18) mg/dL Creatinine (0.6-1.3) mg/dL Est Cr Clr Drug Dosing Estimated GFR (MDRD) Glucose (74-105) mg/dL Calcium (8.4-10.2) mg/dl Troponin I (0.00-0.02) ng/ml Urine Color Yellow (YELLOW) Urine Appearance Clear (CLEAR) Urine pH 7.0 (5.0-9.0) Ur Specific [place] 1.010 (1.005-1.030) Urine Protein Negative (NEGATIVE) Urine Glucose (UA) Negative (NEGATIVE) Urine Ketones Negative (NEGATIVE) Urine Occult Blood Negative (NEGATIVE) Urine Nitrite Negative (NEGATIVE) Urine Bilirubin Negative (NEGATIVE) Urine Urobilinogen 0.2 (0.2-1.0) mg/dL Ur Leukocyte Esterase Small H (NEGATIVE) Urine RBC 0-5 /HPF Urine WBC 0-5 (0-5/HPF) /HPF Ur Epithelial Cells Moderate H (NOT SEEN) /HPF Urine Bacteria Few (0-FEW/HPF) /HPF Meds: Medications Discontinued Medications Generic Name Dose Route Start Last Admin Trade Name Freq PRN Reason Stop Dose Admin Albuterol 6.7 gm 08/12/18 13:25 Proventil Hfa INH 08/12/18 13:26 ONETIME ONE Albuterol/Ipratropium 3 ml 08/12/18 11:37 08/12/18 11:51 Duoneb 3.0-0.5 Mg/3 Ml NEB 08/12/18 11:38 3 ml ONETIME ONE Administration Potassium Chloride 10 meq/ 100 mls @ 100 mls/hr 08/12/18 12:33 08/12/18 12:56 Premix IV 08/12/18 13:32 100 mls/hr ONETIME ONE Administration Lidocaine HCl 30 ml 08/12/18 13:09 08/12/18 13:15 Xylocaine-Mpf 1% INJECT 08/12/18 13:10 30 ml ONETIME ONE Administration Potassium Chloride 40 meq 08/12/18 12:33 08/12/18 12:56 Klor-Con 10 PO 08/12/18 12:34 40 meq ONETIME ONE Administration - Re-Assessments/Exams Free Text/Narrative Re-Assessment/Exam: Patients K+ 2.8. Patient will receive 40 mEq K+ PO now along with a 10 mEq K+ rider IV. 08/12/18 12:42 Departure - Departure Time of Disposition: 13:22 Disposition: Home, Self-Care 01 Condition: Good Clinical Impression: Bronchospasm, Hypokalemia, Bronchitis - Discharge Information *PRESCRIPTION DRUG MONITORING PROGRAM REVIEWED*: No *COPY OF PRESCRIPTION DRUG MONITORING REPORT IN PATIENT LAURA: No Instructions: Hypokalemia, Acute Bronchitis, Adult, [id number], Bronchospasm , Adult, [id number] Forms: ED Department Discharge Additional Instructions: Rx: Potassium Chloride Rx: Tessalon Perles Albuterol inhaler given in ER with spacer, RT provided instruction - My Orders Last 24 Hours: My Active Orders 08/12/18 11:37 RT Aerosol Therapy [RC] ASDIRECTED - Assessment/Plan Last 24 Hours: My Active Orders 08/12/18 11:37 RT Aerosol Therapy [RC] ASDIRECTED <Meño Jara - Last Filed: 08/12/18 13:45> Course - Re-Assessments/Exams Free Text/Narrative Re-Assessment/Exam: 08/12/18 13:44 I personally performed or re-performed the physical examination and medical decision making. I have verified all student documentation or findings, including history, physical exam and/or medical decision making.
[2018-08-12 12:31] LABS: ANION GAP 15.8; CHLORIDE,CL 109 mmol/L (101-111); SODIUM,NA 139 mmol/L (135-145)
[2018-08-12] MEDS ORDERED: Potassium Chloride 10 MEQ Tab.ER PO ONE (12:33)
[2018-08-12] MEDS ORDERED: Potassium Chloride 10 MEQ in Premix Bag 1 BAG IV ONE (12:33)
--- NOTE | 2018-08-12 13:05 | CR ---
Clinical history: 47-year-old female complaining of shortness of breath and "coughing". Interpretation: External cardiac cath lab technologist leads. Earring artifacts. Gown snaps. Normal cardiac silhouette without alveolar edema or dependent effusion. Mild shaggy accentuation central lung markings suggesting bronchial inflammatory changes (reactive airway disease) but no current air trapping or emphysematous changes. No pneumothorax. No lung mass or hilar lymphadenopathy. No focal lobar pneumonia, atelectasis or collapse. CONCLUSION: Mild bronchitis. No signs of heart failure or lobar pneumonia.
[2018-08-12] MEDS ORDERED: Lidocaine 1% 30 ML SDV INJECT ONE (13:09)
[2018-08-12] MEDS ORDERED: Albuterol 6.7 GM Inhaler INH ONE (13:25)
[2018-08-12 13:49] VITALS: BP 102/64
== END 2018-08-12 14:00 | disposition home or self-care (01) ==
LOC: DL.ED 11:32
DX: J98.01 Acute bronchospasm (principal); J40 Bronchitis, not specified as acute or chronic; E87.6 Hypokalemia; Z98.51 Tubal ligation status
CPT/HCPCS: 36415; 71046; 80048; 81001; 84484; 85025; 85379; 94640; 96365; 99283-25; A4217; A9270-GY; J2001; J3480; J7620-GY

== ENCOUNTER 2018-12-01 16:11 | Emergency (ER) | payer OTHER ==
[2018-12-01 16:29] VITALS: BP 124/63; PULSE 52
--- NOTE | 2018-12-01 16:47 | EDM.PDOC ---
ED HPI GENERAL MEDICAL PROBLEM - General Chief Complaint: Chest Pain Stated Complaint: CHEST PAINS, LEFT ARM HURTS Time Seen by Provider: 12/01/18 16:47 Source of Information: Reports: Patient, RN, RN Notes Reviewed History Limitations: Reports: No Limitations - History of Present Illness INITIAL COMMENTS - FREE TEXT/NARRATIVE: Pt to ER with c/o left sided sharp chest pain with some shortness of breath and numbness/tingling down the arms. Patient states she has had this happen in the past. [place]. Patient denies any cardiac problems. Denies recent illness. Denies fever or chills, cough, N/V/D. States she may have some issues with anxiety but is unsure. Denies any indigestion, heartburn, acid reflux. 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 Musculoskeletal 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: Other (See Below) Other Musculoskeletal History: foot/ankle surgery Neurological 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: None Psychiatric 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: None Endocrine/Metabolic 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: None Hematologic 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: None Immunologic 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: None Oncologic (Cancer) 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: None Dermatologic 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: None - Infectious Disease History Infectious Disease 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: None - Past Surgical History Female Surgical 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: Section, Tubal Ligation Musculoskeletal Surgical 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: Other (See Below) Other Musculoskeletal Surgeries/Procedures:: ankle Social & Family History - Family History Family Medical History: Noncontributory Cardiac: Reports: Hypertension Oncologic: Reports: Uterine - Tobacco Use Smoking Status *Q: Former Smoker Used Tobacco, but Quit: Yes Month/Year Tobacco Last Used: 2013 - Caffeine Use Caffeine Use: Reports: Coffee - Recreational Drug Use Recreational Drug Use: No - Living Situation & Occupation Living situation: Reports: , with Family ED ROS GENERAL - Review of Systems Review Of Systems: ROS reveals no pertinent complaints other than HPI. ED EXAM, GENERAL - Physical Exam Exam: See Below Exam Limited By: No Limitations General Appearance: Alert, WD/WN, No Apparent Distress, Anxious Eye Exam: Bilateral Eye: Normal Inspection Ears: Normal External Exam, Hearing Grossly Normal Nose: Normal Inspection Throat/Mouth: Normal Inspection, Normal Voice, No Airway Compromise Head: Atraumatic, Normocephalic Neck: Normal Inspection, Supple, Non-Tender, Full Range of Motion Respiratory/Chest: No Respiratory Distress, Lungs Clear, Normal Breath Sounds, No Accessory Muscle Use, Chest Non-Tender Cardiovascular: Normal Peripheral Pulses, Regular Rate, Rhythm, No Edema, No Gallop, No JVD, No Murmur, No Rub Peripheral Pulses: 2+: Radial (L), Radial (R) GI/Abdominal: Normal Bowel Sounds, Soft, Non-Tender, No Organomegaly, No Distention, No Abnormal Bruit, No Mass (Female) Exam: Deferred Rectal (Female) Exam: Deferred Back Exam: Normal Inspection, Full Range of Motion, NT Extremities: Normal Inspection, Normal Range of Motion, Non-Tender, Normal Capillary Refill, No Pedal Edema Neurological: Alert, Oriented, CN II-XII Intact, Normal Cognition, Normal Gait, Normal Reflexes, No Motor/Sensory Deficits Psychiatric: Normal Affect, Normal Mood Skin Exam: Warm, Dry, Intact, Normal Color, No Rash Lymphatic: No Adenopathy Course - Vital Signs Last Recorded V/S: Last Vital Signs Temp 97.4 F 12/01/18 16:25 Pulse 52 L 12/01/18 16:25 Resp 19 12/01/18 16:25 BP 124/63 12/01/18 16:25 Pulse Ox 100 12/01/18 16:25 - Orders/Labs/Meds Orders: Active Orders 24 hr Category Date Time Status EKG 12 Lead [EKG Documentation Completion] [RC] ROUTINE Care 12/01/18 16:34 Active Labs: Laboratory Tests 12/01/18 12/01/18 Range/Units 16:23 16:23 WBC 6.9 (5.0-10.0) 10^3/uL RBC 5.32 (4.2-5.4) 10^6/uL Hgb 15.0 (12.0-16.0) g/dL Hct 44.5 (37.0-47.0) % MCV 83.6 (80-100) fL MCH 28.2 (27.0-34.0) pg MCHC 33.7 (33.0-35.0) g/dL Plt Count 302 (150-450) 10^3/uL Neut % (Auto) 56.4 (42.2-75.2) % Lymph % (Auto) 32.3 (20.5-50.1) % [place] % (Auto) 8.4 H (2-8) % Eos % (Auto) 2.3 (1.0-3.0) % Baso % (Auto) 0.6 (0.0-1.0) % Sodium 139 (135-145) mmol/L Potassium 3.7 (3.6-5.0) mmol/L Chloride 106 (101-111) mmol/L Carbon Dioxide 24.0 (21.0-31.0) mmol/L Anion Gap 12.7 BUN 10 (7-18) mg/dL Creatinine 0.7 (0.6-1.3) mg/dL Est Cr Clr Drug Dosing 86.72 mL/min Estimated GFR (MDRD) > 60 BUN/Creatinine Ratio 14.28 Glucose 97 (74-105) mg/dL Calcium 9.3 (8.4-10.2) mg/dl Total Bilirubin 0.6 (0.2-1.0) mg/dL AST 33 (10-42) IU/L ALT 34 (10-60) IU/L Alkaline Phosphatase 58 (42-121) IU/L Troponin I < 0.02 (0.00-0.02) ng/ml Total Protein 7.6 (6.7-8.2) g/dl Albumin 4.3 (3.2-5.5) g/dl Globulin 3.3 Albumin/Globulin Ratio 1.30 Meds: Medications Discontinued Medications Generic Name Dose Route Start Last Admin Trade Name Freq PRN Reason Stop Dose Admin Al Hydroxide/Mg Hydroxide 30 ml 12/01/18 17:15 12/01/18 18:22 Gi Cocktail PO 12/01/18 17:16 30 ml ONETIME ONE Administration - Radiology Interpretation Free Text/Narrative:: Chest xray: FINDINGS: Lungs: Unremarkable. No consolidation. Pleural space: Unremarkable. No pleural effusion. No pneumothorax. Heart/Mediastinum: Unremarkable. No cardiomegaly. Bones/joints: Unremarkable. IMPRESSION: No acute findings. Thank you for allowing us to participate in the care of your patient. Dictated and Authenticated by: Deepali Nichols MD 12/01/2018 5:05 PM Central Time ([place] & [place]) See rad report Departure - Departure Time of Disposition: 18:34 Disposition: Home, Self-Care 01 Condition: Fair Clinical Impression: Anxiety Instructions: Panic Attack, [id number], Nonspecific Chest Pain, [id number] , Living With Anxiety Forms: ED Department Discharge Additional Instructions: Follow up with your primary care facility Return to the ER with any further problems - My Orders Last 24 Hours: My Active Orders 12/01/18 16:34 EKG 12 Lead [EKG Documentation Completion] [RC] ROUTINE - Assessment/Plan Last 24 Hours: My Active Orders 12/01/18 16:34 EKG 12 Lead [EKG Documentation Completion] [RC] ROUTINE
[2018-12-01 16:57] LABS: ANION GAP 12.7; CHLORIDE,CL 106 mmol/L (101-111); SODIUM,NA 139 mmol/L (135-145)
[2018-12-01] MEDS ORDERED: GI Cocktail Oral Solution 30 ML PO ONE (17:15)
== END 2018-12-01 18:53 | disposition home or self-care (01) ==
LOC: DL.ED 16:11
DX: F41.9 Anxiety disorder, unspecified (principal); Z87.891 Personal history of nicotine dependence; Z98.51 Tubal ligation status
CPT/HCPCS: 36415; 71045; 80053; 84484; 85025; 93005; 99285; A9270

== ENCOUNTER 2019-03-27 07:42 | Day surgery (SDC) | payer OTHER ==
[~2019-03-27 07:42] MED LIST: Dextrose 5%-0.45% NaCl 1,000 ML IV SCH; Midazolam 1 MG/ML 2 ML SDV ONE; Sodium Chloride 0.9% 10 ML Syringe FLUSH PRN; fentaNYL 100 MCG/2 ML SDV ONE
[2019-03-27] MEDS ORDERED: Midazolam 1 MG/ML 2 ML SDV IV ONE ×3 (07:43→08:51)
[2019-03-27] MEDS ORDERED: fentaNYL 100 MCG/2 ML SDV IV ONE ×3 (07:43→08:50)
--- NOTE | 2019-03-27 09:46 | OR ---
DATE: 03/27/2019 PROCEDURES: Esophagogastroduodenoscopy and multiple pinch biopsies. INSTRUMENT USED: [id number] Olympus video panendoscope. PREMEDICATIONS: No oral or topical anesthesia used. Fentanyl 100 mcg intravenous, Versed 2 mg intravenous, nasal O2 cannula. The procedure was done under pulse oximetry, BP recording, and compliance program manager. INDICATION: The patient with longstanding difficulties of abdominal pain, bloating and dyspepsia, unexplained and not responsive to medical measures. Esophagogastroduodenoscopy is performed for detection of any active erosive lesions, Castro esophagus, and/or malignancy also under consideration, H pylori status to be determined, small bowel biopsies to be obtained for celiac disease, endoscopic hemostasis therapy if needed. PROCEDURE IN DETAIL: The scope was passed with ease. Adequate visualization of the esophagus was made from proximal to distal areas. No upper esophageal lesions identified. No distal esophageal stricture. No uphill or downhill esophageal varices. No Velia-Kim tear. No evidence of erosive esophagitis by [place] criteria. No esophageal polyp or tumor mass identified. Z-line was seen at around 40 cm distal to the oral verge, configuration consistent with grade 1 by ZAP classification. No proximal gastric varices noted. Gastric fundus examination by retroflexion showed no polypoid lesions. No gastric ulcer, malignant mass, or vascular ectasia identified. Duodenal bulb showed no ulcer. Visualized second part of the duodenum was unremarkable. Multiple pinch biopsies, 4 in number, were taken from different areas of the second part of the duodenum, and tissues were also obtained from the duodenal bulb at 9 o'clock and 12 o'clock positions, and sent for any histopathologic evidence of celiac disease. Multiple pinch biopsies were also taken from the gastric antrum and proximal body and sent for PyloriTek test for H pylori and histopathology. No bleeding was noted from any of the visualized areas at the completion of examination. Photographs were taken of the duodenal bulb, gastric antrum, fundus, and distal esophagus. IMPRESSION: Normal study. The patient tolerated the procedure well. [facility] /[id number]
[2019-03-27 15:15] VITALS: BP 112/69; PULSE 85
== END 2019-03-27 11:35 | disposition home or self-care (01) ==
LOC: DL.ENDO 07:42
PROVIDERS: ATTEND Internal Medicine Gastroenterology
DX: K29.50 Unspecified chronic gastritis without bleeding (principal); K31.89 Other diseases of stomach and duodenum; E73.9 Lactose intolerance, unspecified; Z88.5 Allergy status to narcotic agent
CPT/HCPCS: 43239; 87077; J2250; J3010; J7042

== ENCOUNTER 2019-03-30 07:08 | Day surgery (SDC) | payer OTHER ==
[~2019-03-30 07:08] MED LIST changes: -Sodium Chloride 0.9% 10 ML Syringe FLUSH PRN
[2019-03-30] MEDS ORDERED: fentaNYL 100 MCG/2 ML SDV IV ONE ×5 (07:09→07:50)
[2019-03-30] MEDS ORDERED: Midazolam 1 MG/ML 2 ML SDV IV ONE ×7 (07:09→07:48)
[2019-03-30 11:01] VITALS: BP 96/59; PULSE 41
--- NOTE | 2019-03-30 11:33 | OR ---
DATE: 03/30/2019 PROCEDURE: Total colonoscopy. INSTRUMENT USED: [id number] Olympus video colonoscope. PREMEDICATIONS: Fentanyl 150 mcg intravenous, Versed 4 mg intravenous, nasal O2 cannula. The procedure was done under pulse oximetry, BP recording, and night monitor. INDICATION: The patient with progressive constipation and related multiple abdominal symptoms, unexplained and not responsive to medical measures. Colonoscopic examination is done for detection of any polypoid lesions and removal, endoscopic hemostasis therapy if needed. DESCRIPTION OF PROCEDURE: Initial rectal exam was unremarkable. Rigid anoscopy was normal. The colonoscope was passed with ease up to the ileocecal area. Photographs were taken of the normal-appearing cecum identified by double-bulged ileocecal folds. No bleeding was noted from any of the visualized areas at the commencement of the examination. No stricture. No vascular ectasia. No large isolated ulcerations seen. No evidence of diffuse inflammatory bowel disease in the form of friability, contact bleeding, or ulcerations. Bowel preparation was found to be adequate, Post scale 3 in all the areas. Probing the proximal sides of folds and flexures using adequate distention and clearing up the stool material, withdrawal of the scope was made, cecum to rectum time over 6 minutes. No bleeding was noted from any of the visualized areas at the completion of examination. IMPRESSION: Normal study. The patient tolerated the procedure well. [facility] /[id number]
== END 2019-03-30 10:21 | disposition home or self-care (01) ==
LOC: DL.ENDO 07:08
PROVIDERS: ATTEND Internal Medicine Gastroenterology
DX: K59.00 Constipation, unspecified (principal); E73.9 Lactose intolerance, unspecified; E66.09 Other obesity due to excess calories; Z68.29 Body mass index [BMI] 29.0-29.9, adult; Z87.891 Personal history of nicotine dependence; Z88.5 Allergy status to narcotic agent
CPT/HCPCS: 45378; J2250; J3010; J7042; G0121

== ENCOUNTER 2019-05-18 15:06 | Emergency (ER) | payer OTHER ==
[2019-05-18] MEDS ORDERED: Acetaminophen/HYDROcodone 325-10 MG Tab PO ONE (15:07)
[2019-05-18 16:27] VITALS: BP 111/67; PULSE 57
--- NOTE | 2019-05-18 16:50 | EDM.PDOC ---
ED HPI GENERAL MEDICAL PROBLEM - General Chief Complaint: Gastrointestinal Problem Stated Complaint: sever abdominal pain right side Time Seen by Provider: 05/18/19 16:48 Source of Information: Reports: Patient History Limitations: Reports: No Limitations - History of Present Illness INITIAL COMMENTS - FREE TEXT/NARRATIVE: 4 days h/o RUQ-right side pain with nausea bloating, no diarrhoea. denies has TL. Right Lower Abdominal Pain Score (Numeric/FACES): 8 - Related Data Allergies Allergy/AdvReac Type Severity Reaction Status Date / Time No Known Allergies Allergy Verified 05/18/19 16:35 Home Meds: Home Meds . [No Known Home Meds] 03/26/19 [History] Past Medical History HEENT 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: Impaired Vision, Sinusitis Other HEENT History: wears glasses Cardiovascular 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: None, Other (See Below) Other Cardiovascular History: BRADYCARDIA Respiratory 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: None Gastrointestinal 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: Chronic Constipation, Other (See Below) Other Gastrointestinal History: ulcer Genitourinary 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: None [employer] [facility]IV[employer] 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: , Other (See Below) Other [employer]IV[employer] History: hx Musculoskeletal 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: Fracture, Other (See Below) Other Musculoskeletal History: foot/ankle surgery Neurological 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: None Psychiatric 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: None Endocrine/Metabolic 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: Obesity/BMI 30+ Hematologic 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: None Immunologic 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: None Oncologic (Cancer) 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: None Dermatologic 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: None - Infectious Disease History Infectious Disease 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: Chicken Pox - Past Surgical History Head Surgeries/Procedures: Reports: None HEENT Surgical 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: Oral Surgery Cardiovascular Surgical 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: None Respiratory Surgical 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: None GI Surgical 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: None Female Surgical 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: Section, Tubal Ligation Endocrine Surgical 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: None Neurological Surgical 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: None Musculoskeletal Surgical 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: ORIF, Other (See Below) Other Musculoskeletal Surgeries/Procedures:: ankle. R ANKLE ORIF Oncologic Surgical 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: None Dermatological Surgical 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: None Social & Family History - Family History Family Medical History: Noncontributory Cardiac: Reports: Hypertension Oncologic: Reports: Uterine - Tobacco Use Smoking Status *Q: Never Smoker Second Hand Smoke Exposure: No - Caffeine Use Caffeine Use: Reports: Coffee, Soda, Tea Other Caffeine Use: 10-12 CUPS DAILY - Recreational Drug Use Recreational Drug Use: No - Living Situation & Occupation Living situation: Reports: , with Family ED ROS GENERAL - Review of Systems Review Of Systems: Comprehensive ROS is negative, except as noted in HPI. ED EXAM, GI/ABD - Physical Exam Exam: See Below Exam Limited By: No Limitations General Appearance: Alert, WD/WN, Mild Distress, Moderate Distress, Other. No: Active Emesis Ears: Hearing Grossly Normal Throat/Mouth: Normal Voice, No Airway Compromise Head: Atraumatic Neck: Non-Tender, Full Range of Motion Respiratory/Chest: No Respiratory Distress Cardiovascular: Regular Rate, Rhythm GI/Abdominal Exam: Tender, Other (right side-RUQ region). No: Distended, Guarding, Rigid, Rebound Neurological: Alert, Oriented, Normal Cognition, Normal Gait, No Motor/Sensory Deficits Psychiatric: Normal Affect, Normal Mood Skin Exam: Warm, Dry, Normal Color Lymphatic: No Adenopathy Course - Vital Signs Last Recorded V/S: Last Vital Signs Temp 36.3 C 05/18/19 16:26 Pulse 57 L 05/18/19 16:26 Resp 18 05/18/19 16:26 BP 111/67 05/18/19 16:26 Pulse Ox 100 05/18/19 16:26 - Orders/Labs/Meds Orders: Active Orders 24 hr Category Date Time Status Abdomen Pelvis w Cont [CT] Urgent Exams 05/18/19 17:43 Taken Labs: Laboratory Tests 05/18/19 05/18/19 05/18/19 Range/Units 16:42 16:42 17:41 WBC 6.9 (5.0-10.0) 10^3/uL RBC 5.05 (4.2-5.4) 10^6/uL Hgb 14.4 (12.0-16.0) g/dL Hct 42.5 (37.0-47.0) % MCV 84.2 (80-100) fL MCH 28.5 (27.0-34.0) pg MCHC 33.9 (33.0-35.0) g/dL Plt Count 304 (150-450) 10^3/uL Neut % (Auto) 63.3 (42.2-75.2) % Lymph % (Auto) 26.6 (20.5-50.1) % Butts % (Auto) 7.6 (2-8) % Eos % (Auto) 2.2 (1.0-3.0) % Baso % (Auto) 0.3 (0.0-1.0) % Sodium 140 (135-145) mmol/L Potassium 3.4 L (3.6-5.0) mmol/L Chloride 107 (101-111) mmol/L Carbon Dioxide 25.0 (21.0-31.0) mmol/L Anion Gap 11.4 BUN 7 (7-18) mg/dL Creatinine 0.7 (0.6-1.3) mg/dL Est Cr Clr Drug Dosing 85.79 mL/min Estimated GFR (MDRD) > 60 BUN/Creatinine Ratio 10.00 Glucose 99 (74-105) mg/dL Calcium 9.2 (8.4-10.2) mg/dl Total Bilirubin 0.9 (0.2-1.0) mg/dL AST 54 H (10-42) IU/L ALT 76 H (10-60) IU/L Alkaline Phosphatase 69 (42-121) IU/L Total Protein 7.4 (6.7-8.2) g/dl Albumin 4.3 (3.2-5.5) g/dl Globulin 3.1 Albumin/Globulin Ratio 1.39 Amylase 33 (28-100) U/L Lipase 33 (22-51) U/L Urine Color Yellow (YELLOW) Urine Appearance Clear (CLEAR) Urine pH 5.5 (5.0-9.0) Ur Specific [place]dock 1.025 (1.005-1.030) Urine Protein Negative (NEGATIVE) Urine Glucose (UA) Negative (NEGATIVE) Urine Ketones Negative (NEGATIVE) Urine Occult Blood Negative (NEGATIVE) Urine Nitrite Negative (NEGATIVE) Urine Bilirubin Negative (NEGATIVE) Urine Urobilinogen 0.2 (0.2-1.0) mg/dL Ur Leukocyte Esterase Negative (NEGATIVE) Meds: Medications Discontinued Medications Generic Name Dose Route Start Last Admin Trade Name Freq PRN Reason Stop Dose Admin Hydromorphone HCl 0.5 mg 05/18/19 17:44 Dilaudid IVPUSH 05/18/19 17:45 ONETIME ONE Iopamidol 100 ml 05/18/19 17:34 05/18/19 18:58 Isovue-300 (61%) IVPUSH 05/18/19 17:35 75 ml ONETIME ONE Administration - Re-Assessments/Exams Free Text/Narrative Re-Assessment/Exam: 05/18/19 19:06 results discussed with pt who prefers to go home and follow up with clinic Departure - Departure Time of Disposition: 19:06 Disposition: Home, Self-Care 01 Condition: Good Clinical Impression: Epiploic appendagitis, Elevated LFTs - Discharge Information Forms: ED Department Discharge Additional Instructions: 1) see clinic tomorrow for GI REFERRAL for elevated LFT rx togo; norco 10 x 1 Sepsis Event Note - Evaluation Sepsis Screening Result: No Definite Risk - Focused Exam Vital Signs: Vital Signs Temp Pulse Resp BP Pulse Ox 05/18/19 16:26 36.3 C 57 L 18 111/67 100 Date Exam was Performed: 05/18/19 Time Exam was Performed: 19:06 - My Orders Last 24 Hours: My Active Orders 05/18/19 17:43 Abdomen Pelvis w Cont [CT] Urgent - Assessment/Plan Last 24 Hours: My Active Orders 05/18/19 17:43 Abdomen Pelvis w Cont [CT] Urgent
[2019-05-18 17:15] LABS: ANION GAP 11.4; CHLORIDE,CL 107 mmol/L (101-111); SODIUM,NA 140 mmol/L (135-145)
[2019-05-18] MEDS ORDERED: Iopamidol 612 MG/ML 100 ML Bottle IVPUSH ONE (17:34)
[2019-05-18] MEDS ORDERED: HYDROmorphone 0.5 MG/0.5 ML Syringe IVPUSH ONE (17:44)
[2019-05-18] MEDS ORDERED: Acetaminophen/HYDROcodone 325-10 MG Tab ONE (19:11)
== END 2019-05-18 19:20 | disposition home or self-care (01) ==
LOC: DL.ED 15:06
DX: K63.89 Other specified diseases of intestine (principal); E66.9 Obesity, unspecified; R79.89 Other specified abnormal findings of blood chemistry; Z68.31 Body mass index [BMI] 31.0-31.9, adult
CPT/HCPCS: 36415; 74177; 80053; 81003; 82150; 83690; 85025; 99284; Q9967; A9270-GY

== ENCOUNTER 2021-12-10 14:13 | Emergency (ER) | payer OTHER ==
[2021-12-10] MEDS ORDERED: Sodium Chloride 0.9% 10 ML Syringe FLUSH PRN (14:21)
[2021-12-10 14:34] VITALS: BP 107/60; PULSE 62
[2021-12-10 15:07] LABS: ANION GAP 12.7 mEq/L (7-13); CHLORIDE,CL 106 mmol/L (98-107); SODIUM,NA 140 mmol/L (136-145)
[2021-12-10 15:08] LABS: PTT,PARTIAL THROMBOPLSTIN TIME 23.9 SEC (22.0-34.0)
[2021-12-10] MEDS ORDERED: GI Cocktail Oral Solution 30 ML PO ONE (15:11)
[2021-12-10] MEDS ORDERED: Famotidine 20 MG Tab PO ONE (15:11)
[2021-12-10 15:12] LABS: ESTIMATED GFR 68 mL/min (>=60)
== END 2021-12-10 15:37 | disposition home or self-care (01) ==
LOC: DL.ED 14:13
DX: R07.89 Other chest pain (principal); K22.4 Dyskinesia of esophagus; E66.9 Obesity, unspecified; Z68.30 Body mass index [BMI] 30.0-30.9, adult; Z87.891 Personal history of nicotine dependence
CPT/HCPCS: 36415; 71045; 80053; 82150; 83690; 84484; 85025; 85379; 85610; 85730; 93005; 99285; A9270

== ENCOUNTER 2025-01-04 14:39 | Emergency (ER) | payer OTHER ==
[2025-01-04] MEDS ORDERED: Sodium Chloride 0.9% 10 ML Syringe FLUSH PRN (14:50)
[2025-01-04 14:58] LABS: BASOPHILS PERCENT AUTO 0.3 % (0.0-1.0); EOSINOPHILS PERCENT AUTO 1.6 % (1.0-3.0); LYMPHOCYTES PERCENT AUTO 32.0 % (20.5-50.1); MONOCYTES PERCENT AUTO 8.1 % (2-8); NEUTROPHILS PERCENT AUTO 58.0 % (42.2-75.2); PLATELET COUNT,PLT 281 10^3/uL (150-450); RED BLOOD CELL COUNT 4.83 10^6/uL (4.2-5.4); WHITE BLOOD CELL COUNT,WBC 7.0 10^3/uL (5.0-10.0)
[2025-01-04] MEDS: Lactated Ringers 1,000 ML IV ONE (14:59)
[2025-01-04 15:19] LABS: A/G RATIO 1.3; ALANINE AMINOTRANSFERASE,ALT 76.0 U/L (14-59); ASPARTATE AMNIOTRANSFERASE,AST 35.0 U/L (15-37); BILIRUBIN TOTAL 0.7 mg/dL (0.2-1.0); BLOOD UREA NITROGEN,BUN 10.0 mg/dL (7-18); CARBON DIOXIDE,CO2 26.0 mmol/L (21-32); CHLORIDE,CL 107.0 mmol/L (98-107); CREATININE 0.74 mg/dL (0.55-1.02); EST CRCL DRUG DOSING (CG) 75.92 mL/min; GLUCOSE RANDOM 102.0 mg/dL (70-99); PHOSPHORUS 3.3 mg/dL (2.6-4.7); POTASSIUM,K 3.5 mmol/L (3.5-5.1); PROTEIN TOTAL,TP 7.2 g/dL (6.4-8.2); SODIUM,NA 143.0 mmol/L (136-145)
[2025-01-04 15:21] LABS: ESTIMATED GFR 97.0 mL/min (>=60)
[2025-01-04 16:38] VITALS: BP 128/77; PULSE 44
== END 2025-01-04 16:42 | disposition home or self-care (01) ==
LOC: DL.ED 14:39
DX: R42 Dizziness and giddiness (principal)
CPT/HCPCS: 36415; 71045; 80053; 83735; 84100; 84484; 85025; 85379; 93010; 96360; 96361; 99284; 99285-25; J7120